=== PATIENT | male | born 1935 | race Caucasian/White ===

== ENCOUNTER 2021-11-25 16:30 | Emergency (ER) | payer MEDICARE, OTHER ==
[~2021-11-25] VITALS: Ht 167.6 cm; Wt 79.8 kg
[2021-11-25] MEDS ORDERED: XARE20MG PO (16:55)
[2021-11-25] MEDS ORDERED: SEMGLEE100 UNIT/1 SC (16:56)
[2021-11-25] MEDS ORDERED: METOPROLOL TART50 M1 PO (16:56)
[2021-11-25] MEDS ORDERED: LISINOPRIL2.5 MG PO (16:57)
[2021-11-25] MEDS ORDERED: SIMVASTATIN40 MG PO (16:57)
[2021-11-25] MEDS ORDERED: METFORMIN XR500 MG PO (16:57)
[2021-11-25 18:15] LABS: BASO % 0.5 % (0.0-1.0); HEMATOCRIT 33.5 % (42.0-52.0); LYMPH # 0.7 10*3/uL (1.3-4.4); LYMPH % 16.2 % (27.0-41.0); MEAN CORPUSCULAR HGB 28.6 pg (27.0-31.0); MEAN CORPUSCULAR HGB CONC 32.8 g/dl (33.0-37.0); MEAN PLATELET VOLUME 10.6 fl (9.6-12.3); MONO # 0.4 10*3/uL (0.1-1.0); MONO % 10.2 % (3.0-9.0); NEUT # 3.2 10*3/uL (2.3-7.9); NEUT % 72.9 % (47.0-73.0); PLATELET COUNT AUTOMATED 102 10*3/uL (130-400); RED BLOOD COUNT 3.85 10*6/uL (4.50-5.90); RED CELL DISTRI WIDTH 13.7 % (0-14.5); WHITE BLOOD COUNT 4.3 10*3/uL (4.8-10.8)
[2021-11-25 18:25] LABS: ACT PARTIAL THROMBO TIME 36.1 SECONDS (20.0-32.1); INTERNATIONAL NORM RATIO 1.3 (2.0-3.5)
[2021-11-25 18:31] LABS: ALBUMIN 2.9 gm/dl (3.1-4.5); ALKALINE PHOSPHATASE 107 U/L (45-117); BUN 15 mg/dl (7-24); CHLORIDE 110 mmol/L (98-107); CREATININE 0.91 mg/dL (0.70-1.30); POTASSIUM 4.3 mmol/L (3.5-5.1); SGOT/AST 20 IU/L (3-35); SGPT/ALT 37 U/L (12-78); SODIUM 139 mmol/L (136-145)
== END 2021-11-25 19:30 | disposition home or self-care (01) ==
LOC: ED 16:30
PROVIDERS: Family Medicine
DX: S01.01XA Laceration without foreign body of scalp, initial encounter (principal); D64.9 Anemia, unspecified; R73.9 Hyperglycemia, unspecified; E44.0 Moderate protein-calorie malnutrition; Z79.899 Other long term (current) drug therapy; W18.39XA Other fall on same level, initial encounter; Y93.89 Activity, other specified; Y92.89 Other specified places as the place of occurrence of the external cause; Y99.8 Other external cause status

== ENCOUNTER 2021-11-30 00:22 | Emergency (ER) | payer OTHER ==
[~2021-11-30] VITALS: Ht 175.2 cm; Wt 76.2 kg
[~2021-11-30 00:22] MED LIST: LISINOPRIL2.5 MG PO; METFORMIN XR500 MG PO; METOPROLOL TART50 M1 PO; SEMGLEE100 UNIT/1 SC; SIMVASTATIN40 MG PO; XARE20MG PO
== END 2021-11-30 06:16 | disposition home or self-care (01) ==
LOC: ED 00:22
DX: S00.03XA Contusion of scalp, initial encounter (principal); X58.XXXA Exposure to other specified factors, initial encounter; Y93.89 Activity, other specified; Y92.89 Other specified places as the place of occurrence of the external cause; Y99.8 Other external cause status